=== PATIENT | male | born 1960 | race Caucasian/White ===

== ENCOUNTER 2023-12-18 09:07 | Outpatient (CLI) | payer OTHER, SELFPAY ==
--- NOTE | ~2023-12-18 | XR_ITS ---
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 TECHNIQUE: AP internally and externally rotated, AP oblique externally rotated and axillary views of the left shoulder were obtained. COMPARISON: None FINDINGS: Normal alignment. No fracture. Mild glenohumeral and acromioclavicular osteoarthritis. Visualized po rtion of the upper lungs are clear. Soft tissues are unremarkable. IMPRESSION: Mild left glenohumeral and acromioclavicular osteoarthritis. Reviewed, dictated and finalized at location B.
--- NOTE | ~2023-12-18 | XR_ITS ---
EXAMINATION: XR wrist LT min 3V DATE: 12/18/2023 09:27 INDICATION: Chronic multiple joint pain. Rheumatoid arthritis and ankylosing spondylitis. TECHNIQUE: Posteroanterior, ulnar deviation, oblique, and lateral views of the left wrist were obtain ed. COMPARISON: none FINDINGS: Bone alignment is normal. No fracture. Mild osteoarthritis at the distal radioulnar, radiocarpal, fir st carpometacarpal and first metacarpophalangeal joints. Small lucency potentially chronic erosion at the ulnar side of the ulnar styloid process. IMPRESSION: 1. 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 2. Possible small erosion along the ulnar styloid process which could be related to reported history of rheumatoid arthritis. Reviewed, dictated and finalized at location B. IMPRESSION: 1. 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 2. Possible small erosion along the ulnar styloid process which could be relate d to reported history of rheumatoid arthritis.
== END 2023-12-18 09:08 ==
LOC: MICIMG 09:10
PROVIDERS: PCP Internal Medicine; Visit Provider Internal Medicine
DX: M45.9 Ankylosing spondylitis of unspecified sites in spine (principal); M19.042 Primary osteoarthritis, left hand; M19.032 Primary osteoarthritis, left wrist; M19.012 Primary osteoarthritis, left shoulder
CPT/HCPCS: 73030; 73110

== ENCOUNTER 2024-06-14 07:23 | Outpatient (CLI) | payer MEDICARE, SELFPAY ==
--- NOTE | ~2024-06-14 | XR_ITS ---
EXAMINATION: XR lumbar spine min 4V DATE: 06/14/2024 08:04 INDICATION: Low back pain. TECHNIQUE: 5 views of lumbar spine were obtained. COMPARISON: None. FINDINGS: There is 3 degrees levocurvature of lumbar spine. There is mild chronic anterior wedging of T12 and L1 vertebral bodies. There is mildly decreased disc height at L4-L5 and L5-S1. There are end plate osteophytes at most levels. There is multilevel [id number] facet joint osteoarthritis. IMPRESSION: 1. Mild lumbar spondylosis. Reviewed, dictated and finalized at location A. AL SCIENCE PROFESSOR IMPRESSION: 1. Mild lumbar spondylosis.
--- NOTE | ~2024-06-14 | XR_ITS ---
Right ankle Technique: AP, oblique, and lateral views were obtained. Clinical History: Pain Findings: No acute fracture or dislocation is seen. Osseous alignment is anatomic. Ankle mortise and other visualized joint spaces are preserved. Soft tissues are otherwise unremarkable. Impression: Unremarkable right ankle. Reviewed, dictated and finalized at location . ITALITY MANAGER Impression: Unremarkable right ankle.
== END 2024-06-14 07:24 | disposition home or self-care (01) ==
DX: M47.896 Other spondylosis, lumbar region (principal)
CPT/HCPCS: 72110; 73610

== ENCOUNTER 2024-09-20 15:31 | Outpatient (CLI) | payer MEDICARE, SELFPAY ==
--- NOTE | ~2024-09-20 | CT_ITS ---
CLINICAL INDICATION: Abdominal pain COMPARISON: None. TECHNIQUE: Multiple contiguous axial images of the abdomen and pelvis were performed without the admi nistration of intravenous contrast The dose-length product (DLP) was 205.89 mGy-cm. Automated exposure control and iterative reconstruction technique were employed. FINDINGS/OBSERVATIONS: Visualized lower thorax: The bilateral lung bases are clear. The heart is of normal size, without pericardial effusion. Liver: The liver demonstrates homogeneous attenuation and is not enlarged measuring 13 cm in longitudinal di mension. Gallbladder and biliary system: The gallbladder is decompressed, and otherwise unremarkable. Pancreas: Limited evaluation of the pancreas secondary to the lack of intravenous contrast. Spleen: The spleen demonstrates homogeneous attenuation and is not enlarged measuring 9 cm in longitudinal di mension. Kidneys: The bilateral kidneys are unremarkable, without hydronephrosis or renal calculi. Adrenal glands: Unremarkable. Gastrointestinal tract: Colonic diverticulosis without surrounding inflammatory change. Fecal stasis within the colon. Appendix: The appendix is not definitively visualized. However, no pericecal inflammatory change is identified suggest the presence of acute appendicitis. Vasculature: Unremarkable. Lymph nodes: Limited evaluation without intravenous contrast. Pelvic structures: The bladder is minimally distended, and otherwise unremarkable. The prostate gland is enlarged, and contains bulky calcifications. Body wall and musculoskeletal: Bone island within the vertebral body of L2, unchanged from prior plain film evaluation dated 06/14/20 24 No significant degenerative disease within the lower thoracic or lumbosacral spine. IMPRESSION: Colonic diverticulosis without surrounding inflammatory change. Reviewed, dictated and finalized at location A. RMARY ATTENDANT
--- OUTSIDE RECORDS SUMMARY | 2024-09-20 15:37 | XMS_ITS | Patient Health Record ---
Author Organization [facility] Address [address] [place] [address] Care Team Providers Care Operations Expert Name Role Phone Elroy Conner Primary Care Provider Renee Cooper Unavailable [phone] Scar Ellis Unavailable [phone] Allergies Allergen (clinical drug ingredient) Drug/Non Drug Allergy documented on EMR Reaction Allergy Type Onset Date Status Penicillin Unknown Drug Allergy Active Results Component Value Reference Range Notes eGFR Reviewed date:08/13/2024 02:01:30 PM Interpretation: Performing Lab:[facility] , [address] [place] [address]. [facility] [address] Notes/Report: eGFR 88 >=60 mL/min/1.73 m2 Interpretive Data Reference Interval Normal >/= 90 mL/min/1.73m2 Mildly decreased* 60 - 89 mL/min/1.73m2 Mildly to moderately decreased 45 - 59 mL/min/1.73m2 Moderately to severely decreased 30 - 44 mL/min/1.73m2 Severely decreased 15 - 29 mL/min/1.73m2 Kidney Failure < 15 mL/min/1.73m2 *Relative to young adult level Estimated glomerular filtration rate is determined by the 2020 CKD-EPI equation recommended by the National Kidney Foundation (A Unifying Approach to GFR Estimation: Recommendations of the NKF-ASK Task Force on Reassessing the Inclusion of Race in Diagnosing Kidney Disease, JASN 2020). The CKD-EPI equation should not be used for patients with unstable renal function and has not been validated in children and those over 70. Current interpretive data was last reviewed 2021. Differential Automated Reviewed date:08/13/2024 02:01:29 PM Interpretation: Performing Lab:[facility] , [address] [place] [address] Notes/Report: Neut Abs 3.0 1.5-6.5 K/cumm ImmGran Abs 0.0 0.0-0.1 K/cumm Lymphocyte Abs 0.8 0.8-3.3 K/cumm Gasconade Abs 0.7 0.2-0.8 K/cumm Eos Abs 0.1 0.0-0.5 K/cumm Baso Abs 0.0 0.0-0.1 K/cumm Neut Pct 63.6 Interpretive Data Percent cell count reference ranges are not reported, since discordance with absolute values may lead to misinterpretation of CBC data. Current Interpretive Data was last revised on 2017. ImmGran Pct 0.2 Interpretive Data Percent cell count reference ranges are not reported, since discordance with absolute values may lead to misinterpretation of CBC data. Current Interpretive Data was last revised on 2017. Lymph Pct 17.5 Interpretive Data Percent cell count reference ranges are not reported, since discordance with absolute values may lead to misinterpretation of CBC data. Current Interpretive Data was last revised on 2017. Gas[place] Pct 15.6 Interpretive Data Percent cell count reference ranges are not reported, since discordance with absolute values may lead to misinterpretation of CBC data. Current Interpretive Data was last revised on 2017. Eos Pct 2.5 Interpretive Data Percent cell count reference ranges are not reported, since discordance with absolute values may lead to misinterpretation of CBC data. Current Interpretive Data was last revised on 2017. Baso Pct 0.6 Interpretive Data Percent cell count reference ranges are not reported, since discordance with absolute values may lead to misinterpretation of CBC data. Current Interpretive Data was last revised on 2017. QTB Gold Reviewed date:08/15/2024 09:05:59 PM Interpretation: Performing Lab:[facility] , [address] [place] [address] Notes/Report: QuantiFERON TB Gold Negative Negative No interferon-gamma response to M. tuberculosis antigens was detected. Latent infection with M. tuberculosis is unlikely. A single negative result does not exclude infection with M. tuberculosis. In patients at high risk for M.tuberculosis infection, a second test should be considered in accordance with the 2017 ATS/IDSA/CDC Clinical Practice Guidelines for Diagnosis of Tuberculosis in Adults and Children [Clem JOSEPH et. al. Clin. Infect. Dis. 2017;64(2):111-115]. The reference range for the 'TB1 Ag minus Nil Result' and 'TB2 Ag minus Nil Result' is an Interferon-gamma level <0.35 IU/mL. TB-Nil 0.00 TB2-Nil 0.00 Mitogen-Nil 2.27 NIL 0.03 Test Performed by: [facility] [address] [place] [address] [employer]: Kurtis Martínez Ph.D.; CLIA# [id number] Comprehensive metabolic pane l (CMP) Reviewed date:08/13/2024 02:01:19 PM Interpretation:Lab Result Generalized Performing Lab:[facility] , [address] [place] [address]. [facility] [address] Notes/Report: Sodium 142 135-145 mmol/L Plasma Potassium 4.4 3.3-4.9 mmol/L Chloride 105 97-110 mmol/L Total CO2 27 22-32 mmol/L Anion Gap 10 2-15 mmol/L BUN 18 6-25 mg/dL Creatinine 0.96 0.80-1.30 mg/dL Glucose 86 70-199 mg/dL Interpretive Data Fasting glucose >/= 126 mg/dl is diagnostic for diabetes. Fasting is defined as no caloric intake for at least 8 hours. Fasting glucose between 100 mg/dl to 125 mg/dl is diagnostic of prediabetes. In a patient with classic symptoms of hyperglycemia or hyperglycemic crisis, a random glucose >/= 200 mg/dl is diagnostic for diabetes. In the absence of unequivocal hyperglycemia, results should be confirmed by repeat testing. The classification and Diagnosis of Diabetes Diabetes Care 2021; 46: S19-S40. Current interpretive data was last revised 2022. Total Calcium 9.8 8.5-10.3 mg/dL Total Bilirubin 0.8 0.1-1.2 mg/dL Plasma Total Protein 7.2 6.5-8.5 g/dL Albumin 4.5 3.5-5.0 g/dL Alkaline Phosphatase 42 40-130 Units/L ALT 36 7-55 Units/L AST 41 10-50 Units/L CBC w auto diff Reviewed date:08/13/2024 02:01:19 PM Interpretation:Lab Result Generalized Performing Lab:[facility] , [address] [place] [address]. [facility] [address] Notes/Report: WBC 4.8 3.8-9.9 K/cumm Hgb 16.0 13.0-17.5 g/dL Hct 48.5 38.9-50.3 % Platelet Ct 227 150-400 K/cumm MPV 10.7 9.1-12.3 fL RBC 5.29 4.30-5.80 M/cumm MCV 91.7 81.3-96.4 fL MCH 30.2 27.1-33.3 pg MCHC 33.0 32.3-35.7 g/dL RDW CV 12.5 11.1-14.9 % RDW SD 42.2 35.7-48.1 fL NRBC Abs Auto 0.00 0.00-0.01 K/cumm eGFR Reviewed date:05/29/2024 01:41:12 PM Interpretation: Performing Lab:[facility] , [address] [place] [address]. [place] [address] Notes/Report: eGFR 83 >=60 mL/min/1.73 m2 Interpretive Data Reference Interval Normal >/= 90 mL/min/1.73m2 Mildly decreased* 60 - 89 mL/min/1.73m2 Mildly to moderately decreased 45 - 59 mL/min/1.73m2 Moderately to severely decreased 30 - 44 mL/min/1.73m2 Severely decreased 15 - 29 mL/min/1.73m2 Kidney Failure < 15 mL/min/1.73m2 *Relative to young adult level Estimated glomerular filtration rate is determined by the 2020 CKD-EPI equation recommended by the National Kidney Foundation (A Unifying Approach to GFR Estimation: Recommendations of the NKF-ASK Task Force on Reassessing the Inclusion of Race in Diagnosing Kidney Disease, JASN 202). The CKD-EPI equation should not be used for patients with unstable renal function and has not been validated in children and those over 70. Current interpretive data was last reviewed 2021. Differential Automated Reviewed date:05/29/2024 01:41:12 PM Interpretation: Performing Lab:[facility] , [address] [facility]. [place] [address] Notes/Report: Neut Abs 5.2 1.5-6.5 K/cumm ImmGran Abs 0.0 0.0-0.1 K/cumm Lymphocyte Abs 0.9 0.8-3.3 K/cumm Gasconade Abs 0.7 0.2-0.8 K/cumm Eos Abs 0.1 0.0-0.5 K/cumm Baso Abs 0.0 0.0-0.1 K/cumm Neut Pct 75.3 Interpretive Data Percent cell count reference ranges are not reported, since discordance with absolute values may lead to misinterpretation of CBC data. Current Interpretive Data was last revised on 2017. ImmGran Pct 0.4 Interpretive Data Percent cell count reference ranges are not reported, since discordance with absolute values may lead to misinterpretation of CBC data. Current Interpretive Data was last revised on 2017. Lymph Pct 13.3 Interpretive Data Percent cell count reference ranges are not reported, since discordance with absolute values may lead to misinterpretation of CBC data. Current Interpretive Data was last revised on 2017. Gas[place] Pct 9.8 Interpretive Data Percent cell count reference ranges are not reported, since discordance with absolute values may lead to misinterpretation of CBC data. Current Interpretive Data was last revised on 2017. Eos Pct 0.9 Interpretive Data Percent cell count reference ranges are not reported, since discordance with absolute values may lead to misinterpretation of CBC data. Current Interpretive Data was last revised on 2017. Baso Pct 0.3 Interpretive Data Percent cell count reference ranges are not reported, since discordance with absolute values may lead to misinterpretation of CBC data. Current Interpretive Data was last revised on 2017. SSB Ab Reviewed date:05/30/2024 10:49:43 AM Interpretation: Performing Lab:[facility] , [address] [facility] [place] [address] Notes/Report: SS B Antibody <0.2 <=0.9 Ab Index Interpretive Data Negative: < 1.0 Ab Index Positive: > or = 1.0 Ab Index Current interpretive data was last revised on 2016. SSA Ab Reviewed date:05/30/2024 10:49:43 AM Interpretation: Performing Lab:[facility] , [address] [place] [address]. [facility] [address] Notes/Report: SS A Antibody <0.2 <=0.9 Ab Index Interpretive Data Negative: < 1.0 Ab Index Positive: > or = 1.0 Ab Index Current interpretive data was last revised on 2016. Sed Rate Reviewed date:05/29/2024 01:41:12 PM Interpretation: Performing Lab:[facility] , [address] [place] [address]. [facility] [address] Notes/Report: ESR 3 1-20 mm/hr QTB Gold Reviewed date:05/31/2024 03:14:30 PM Interpretation: Performing Lab:[facility] , [address] [place] [address]. [facility] [address] Notes/Report: QuantiFERON TB Gold Negative Negative No interferon-gamma response to M. tuberculosis antigens was detected. Latent infection with M. tuberculosis is unlikely. A single negative result does not exclude infection with M. tuberculosis. In patients at high risk for M.tuberculosis infection, a second test should be considered in accordance with the 2017 ATS/IDSA/CDC Clinical Practice Guidelines for Diagnosis of Tuberculosis in Adults and Children [Lewinsohn DM et. al. Clin. Infect. Dis. 2017;64(2):111-115]. The reference range for the 'TB1 Ag minus Nil Result' and 'TB2 Ag minus Nil Result' is an Interferon-gamma level <0.35 IU/mL. TB-Nil 0.01 TB2-Nil 0.01 Mitogen-Nil 7.33 NIL 0.02 Test Performed by: [place] [id number] [place] [id number] [employer]: Kurtis Martínez Ph.D.; CLIA# [id number] Hep C AB Reviewed date:05/29/2024 01:41:12 PM Interpretation: Performing Lab:[facility] , [address] [place] [address]. [facility] [address] Notes/Report: Hepatitis C Antibody Nonreactive Nonreactive Interpretive Data Nonreactive: Antibodies to HCV not detected. Does NOT exclude the possibility of recent exposure to HCV. Equivocal: Equivocal for HCV antibodies. Supplemental molecular testing will be automatically performed to determine infection status in accordance with current CDC screening recommendations. Reactive: Positive for HCV antibodies. This may represent current or past HCV infection. Supplemental molecular testing will be automatically performed to determine current infection status in accordance with current CDC screening recommendations. Interpretive data was last revised on 2019. Hep B surf AG Reviewed date:05/29/2024 01:41:12 PM Interpretation: Performing Lab:[facility] , [address] [place] [address]. [place] [address] Notes/Report: Hepatitis B Surface Antigen Nonreactive Nonreactive G6PD Ql Reviewed date:05/29/2024 09:58:10 PM Interpretation: Performing Lab:[facility] , [address] [place] [address]. [facility] [address] Notes/Report: G6PD, Qual Normal Normal Interp data: G6PD activity should be interpreted in the context of a patient's hematocrit. Hematocrit < 20% may lead to a falsely deficient result, while hematocrit > 50% may lead to a falsely normal result. Current interpretive data was last revised on 2019. Testing performed by: [facility], [address] [place] [address] Creatine Kinase Reviewed date:05/29/2024 01:41:12 PM Interpretation: Performing Lab:[facility] , [facility] [address] [facility]. [place] [address] Notes/Report: Total CK 330 40-300 Units/L Comprehensive metabolic pane l (CMP) Reviewed date:05/29/2024 01:41:12 PM Interpretation: Performing Lab:[facility] , [address] [place] [address]. [place] [address] Notes/Report: Sodium 141 135-145 mmol/L Plasma Potassium 4.4 3.3-4.9 mmol/L Chloride 104 97-110 mmol/L Total CO2 26 22-32 mmol/L Anion Gap 11 2-15 mmol/L BUN 18 6-25 mg/dL Creatinine 1.01 0.80-1.30 mg/dL Glucose 103 70-199 mg/dL Interpretive Data Fasting glucose >/= 126 mg/dl is diagnostic for diabetes. Fasting is defined as no caloric intake for at least 8 hours. Fasting glucose between 100 mg/dl to 125 mg/dl is diagnostic of prediabetes. In a patient with classic symptoms of hyperglycemia or hyperglycemic crisis, a random glucose >/= 200 mg/dl is diagnostic for diabetes. In the absence of unequivocal hyperglycemia, results should be confirmed by repeat testing. The classification and Diagnosis of Diabetes Diabetes Care 2021; 46: S19-S40. Current interpretive data was last revised 2022. Total Calcium 9.9 8.5-10.3 mg/dL Total Bilirubin 0.9 0.1-1.2 mg/dL Plasma Total Protein 7.4 6.5-8.5 g/dL Albumin 4.9 3.5-5.0 g/dL Alkaline Phosphatase 36 40-130 Units/L ALT 56 7-55 Units/L AST 42 10-50 Units/L CBC w auto diff Reviewed date:05/29/2024 01:41:12 PM Interpretation: Performing Lab:[facility] , [facility] [place][note 2][address] [facility]. [facility] [address] Notes/Report: WBC 6.9 3.8-9.9 K/cumm Hgb 15.8 13.0-17.5 g/dL Hct 47.9 38.9-50.3 % Platelet Ct 257 150-400 K/cumm MPV 9.8 9.1-12.3 fL RBC 5.05 4.30-5.80 M/cumm MCV 94.9 81.3-96.4 fL MCH 31.3 27.1-33.3 pg MCHC 33.0 32.3-35.7 g/dL RDW CV 12.8 11.1-14.9 % RDW SD 45.1 35.7-48.1 fL NRBC Abs Auto 0.00 0.00-0.01 K/cumm Anti-CCP (Cyclic Citrullinat ed Peptide Ab) Reviewed date:05/30/2024 10:49:43 AM Interpretation: Performing Lab:[facility] , [facility] [place][note 2][address] [facility]. [facility] [address] Notes/Report: CCP Ab <0.5 <=2.9 units/mL Interpretive data Negative: <3 units/mL Positive: > or equal to 3 units/mL Current interpretive data was last revised on 2016. Rheumatoid Factor Reviewed date:05/29/2024 01:41:12 PM Interpretation: Performing Lab:[facility] , [address] [facility] [facility] [address] Notes/Report: RF, Lito 10 <=15 IUnits/mL C Reactive Protein Reviewed date:05/29/2024 01:41:12 PM Interpretation: Performing Lab:[facility] , [address] [facility] [facility] [address] Notes/Report: C-Reactive Protein <3.0 <=10.0 mg/L MERNA reflex titer pattern HEMAL + dsDNA Reviewed date:05/30/2024 05:54:31 PM Interpretation: Performing Lab:[facility] , [address] [facility] [facility] [address] Notes/Report: MERNA, Qual Negative Interpretive Data Normal range for MERNA Qualitative Antibody = Negative. 1. MERNA is performed using indirect immunofluorescence against HEp-2 cells 2. MERNA titers are performed on all positive qualitative results. 3. A significantly positive MERNA result is defined as a positive nuclear fluorescence at a titer of 1:80 or greater. 4. 15% of normal people above age 65 have significantly positive MERNA results. 5% or less of normal people age 65 or under have significantly positive MERNA results. Current interpretive data was last revised on 2020. Testing performed by: [facility], [address] [place]., [address] Reason For Referral Reason Simponi Aria [employer] Diagnosis 1 Rheumatoid arthritis without rheumatoid factor, multiple sites (M06.09) Referral Organization [facility] Referring Provider First Name Renee Referring Provider Last Name Brian Referring Provider Speciality Rheumatolo gy Referred Organization [facility] Referred Provider Renee Torres Referred Address [address] [address],[place], [place],[address],[place] Referred Provider Specialty Rheumatology Procedure 1 INJECTION GOLIMUMAB 1 MG FOR IV USE (J1602) Referral Priority Routine Medications Medication SIG (Take, Route, Frequency, Duration) Notes Start Date End Date Status Tamsulosin HCl 0.4 MG 1 capsule Orally O nce a day for 30 day(s) Active Rosuvastatin Calcium 10 MG 1 tablet Oral ly Once a day for 30 day(s) Active Leflunomide 20 MG TAKE 1 TABLET BY JASON TH EVERY DAY FOR 30 DAYS for 30 Active Social History Tobacco Use: Social History Observation Description Date Details (start date - stop date) Never Smoker NA - NA Household Question Answer Notes Marital status: Number of children in household: 0 Tobacco Control (Standard) Question Answer Notes Tobacco use: Nonsmoker Problems Problem Type SNOMED Code ICD Code Onset Dates Problem Status W/U Status Risk Notes Problem [id number] Rheumatoid arthritis without rheumatoid factor, multiple sites (M06.09) Active confirmed Problem 75991332 Neck pain (M54.2) Active confirmed Vital Signs Heart Rate 85 /min 09/02/2024 Temperature 98.2 degrees Fahrenheit 09/02/2024 Blood pressure diastolic 99 mm Hg 09/02/2024 Oximetry 96 % 08/13/2024 Height-cm 175.26 cm 09/02/2024 Weight-kg 80.29 kg 09/02/2024 Height 69 in 09/02/2024 Blood pressure systolic 150 mm Hg 09/02/2024 Weight 177 lbs 09/02/2024 BMI 26.14 kg/m2 09/02/2024 Encounters Encounter Location Date Provider Diagnosis [facility] [address] [address] 05/29/2024 Renee Du Pain in unspecified joint M25.50 and Myalgia M79.10 [facility] [address] [place] [address] 06/12/2024 Renee Du Rheumatoid arthritis without rheumatoid factor, multiple sites M06.09 ; Acute right ankle pain M25.571 ; Muscle spasm M62.838 and Elevated CK R74.8 [facility] [address] [place] [address] 08/13/2024 Renee Du Rheumatoid arthritis without rheumatoid factor, multiple sites M06.09 ; Acute right ankle pain M25.571 ; Muscle spasm M62.838 ; Elevated CK R74.8 and Neck pain M54.2 [facility] [address] [place] [address] 09/02/2024 Renee Du Rheumatoid arthritis without rheumatoid factor, multiple sites M06.09 [facility] [address] [place] [id number] 06/12/2024 Renee Torres [facility] [address] [place] [address] 06/13/2024 Renee Torres Lumbar back pain M54 .50 [facility] [address] [place] [address] 08/20/2024 Renee Torres [facility] [address] [place] [address] 08/23/2024 Renee Torres Assessments Encounter Date Diagnosis (ICD Code) Assessment Notes Treatment Notes Treatment Clinical Notes Section Notes 05/29/2024 Pain in unspecified joint (ICD-10 - M25.50) 64 year old female with arthralgia and myalgia. The pain is steroid responsive. He was diagnosed with rheumatoid arthritis by Dr. Villa. He did not tolerate methotrexate. He failed sulfasalazine, imuran and enbrel. He is here for second opinion. Serologies will be ordered. Follow up vitisit will be scheduled. 05/29/2024 Myalgia (ICD-10 - M79.10) 64 year old female with arthralgia and myalgia. The pain is steroid responsive. He was diagnosed with rheumatoid arthritis by Dr. Villa. He did not tolerate methotrexate. He failed sulfasalazine, imuran and enbrel. He is here for second opinion. Serologies will be ordered. Follow up vitisit will be scheduled. 06/12/2024 Rheumatoid arthritis without rheumatoid factor, multiple sites (ICD-10 - M06.09) labs discussed with patient, CK mildly elevated, has had muscle spasms, severe at times, advised to hold rosuvastatin for a few weeks and see if spasms get better, order Xray of the right ankle, order mailed to him, start arava 20mg/day for seronegative RA, return in 6 weeks 06/12/2024 Acute right ankle pain (ICD-10 - M25.571) labs discussed with patient, CK mildly elevated, has had muscle spasms, severe at times, advised to hold rosuvastatin for a few weeks and see if spasms get better, order Xray of the right ankle, order mailed to him, start arava 20mg/day for seronegative RA, return in 6 weeks 06/13/2024 Lumbar back pain (ICD-10 - M54.50) 08/13/2024 Rheumatoid arthritis without rheumatoid factor, multiple sites (ICD-10 - M06.09) uncontrolled, did not tolerate methotrexate, failed sulfasalazine, imuran, enbrel and now leflunomide, advised to stop leflunomide, will order TB test and arrange orencia infusion, order cervical spine Xray, consider PT 08/13/2024 Acute right ankle pain (ICD-10 - M25.571) uncontrolled, did not tolerate methotrexate, failed sulfasalazine, imuran, enbrel and now leflunomide, advised to stop leflunomide, will order TB test and arrange orencia infusion, order cervical spine Xray, consider PT 09/02/2024 Rheumatoid arthritis without rheumatoid factor, multiple sites (ICD-10 - M06.09) 06/12/2024 Muscle spasm (ICD-10 - M62.838) labs discussed with patient, CK mildly elevated, has had muscle spasms, severe at times, advised to hold rosuvastatin for a few weeks and see if spasms get better, order Xray of the right ankle, order mailed to him, start arava 20mg/day for seronegative RA, return in 6 weeks 08/13/2024 Muscle spasm (ICD-10 - M62.838) uncontrolled, did not tolerate methotrexate, failed sulfasalazine, imuran, enbrel and now leflunomide, advised to stop leflunomide, will order TB test and arrange orencia infusion, order cervical spine Xray, consider PT 08/13/2024 Elevated CK (ICD-10 - R74.8) uncontrolled, did not tolerate methotrexate, failed sulfasalazine, imuran, enbrel and now leflunomide, advised to stop leflunomide, will order TB test and arrange orencia infusion, order cervical spine Xray, consider PT 06/12/2024 Elevated CK (ICD-10 - R74.8) labs discussed with patient, CK mildly elevated, has had muscle spasms, severe at times, advised to hold rosuvastatin for a few weeks and see if spasms get better, order Xray of the right ankle, order mailed to him, start arava 20mg/day for seronegative RA, return in 6 weeks 08/13/2024 Neck pain (ICD-10 - M54.2) uncontrolled, did not tolerate methotrexate, failed sulfasalazine, imuran, enbrel and now leflunomide, advised to stop leflunomide, will order TB test and arrange orencia infusion, order cervical spine Xray, consider PT Plan Of Treatment Pending Test Test Name Order Date X ray : Ankle, right 06/12/2024 X ray : Spines, cervical 2 views 025 X ray : Spines, lumbar complete 06/13/20 Next Appt Details Provider Name:Renee Brian, 09/30 08:30:00 AM, [address], [place], [address], Provider Name:Renee Torres, 11/25 08:30:00 AM, [address], [place], [address], Insurance Providers Payer Name Payer Address Payer Phone Subscriber Number Group Number Insured Name Patient Relationship to Insured Coverage Start Date Coverage End Date [employer] Medicare Ppo [address] [place] [address] [id number] Jose Elias Pinon Self - patient is the insured Medical (General) History Medical History History ICD Code myalgia, hyperlipidemia, GERD, vitamin D deficiency, BPH Surgical History Surgery Date(Month/Year) hernia repair, right forearm fracture
--- OUTSIDE RECORDS SUMMARY | 2024-09-20 15:37 | XMS_ITS ---
Author Organization [facility] avery Address [address] [facility] [address], [place] [address] Care Team Providers Care Barge Hand Name Role Phone Elroy Conner Primary Care Provider Renee Cooper [phone] REASON FOR VISIT flare Medications Medication SIG (Take, Route, Frequency, Duration) Notes Start Date End Date Status methylPREDNISolone 4 MG taper Orally for 6 days 08/29/2024 Active Encounters Encounter Location Date Provider Diagnosis [facility] [address] [facility] [address] [place] [address] 08/23/2024 Renee Torres Plan Of Treatment Medication Medication Name Sig Start Date Stop Date Notes methylPREDNISolone 4 MG taper Orally for 6 days 08/23/2024 08/29/2024 Next Appt Details Provider Name:Renee Torres, 09/30 08:30:00 AM, [address], [facility] [address], [place], [address], Provider Name:Renee Torres, 11/25 08:30:00 AM, [address], [facility] [address], [place], [address], Progress Notes * Jose Elias PINONDOB:1960 ( 64 yo M)Acc No.[id number]:08/23/2024 Patient: Jose Elias DUONG :1960 A ge:64 Y S ex:Male Address:[place], [address] * Refills Start methylPREDNISolone Tablet Therapy Pack, 4 MG, Orally, 21, taper, 6 days, Refills=0 * true * Date: Generated for Arnoldo rodríguez/Ronna/Ashleyitting on: 0 09/20/2024 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
--- OUTSIDE RECORDS SUMMARY | 2024-09-20 15:37 | XMS_ITS ---
Author Organization [facility] Address [address] [place] [address] Care Team Providers Care Reprint Sorter Name Role Phone Elroy Conner Primary Care Provider Renee Cooper [phone] REASON FOR VISIT copay assist Encounters Encounter Location Date Provider Diagnosis [facility] [address] [place] [address] 08/20/2024 Renee Torres Plan Of Treatment Next Appt Details Provider Name:Renee Torres, 09/30 08:30:00 AM, [address], [address], [place], [address], Provider Name:Renee Torres, 11/25 08:30:00 AM, [address], [address], [place], [address], Progress Notes * Jose Elias PINONDOB:1960 ( 64 yo M)Acc No.[id number]:08/20/2024 Patient: Jose Elias DUONG :1960 A ge:64 Y S ex:Male [place], [address] * true * Date: Generated for Printi ng/Faxing/eTransmitting on: 0 09/20/2024 03:36 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
--- OUTSIDE RECORDS SUMMARY | 2024-09-20 15:37 | XMS_ITS | Patient Health Summary ---
Author Organization [facility] Address [address] [facility] [place] [address] Care Team Providers Care Beauty Shop Manager Name Role Phone Unavailable Primary Care Provider Unavailabl e Note from [facility] [place],non-owned Affiliates and Associated Physician Practices is amultiple site organization consisting of ambulatory clinics and hospital sitesin [place], [place], [place] and [place]. This disclosure is being madepursuant to the Care Everywhere program and may not contain all information available regarding this patient. Last updated 18.[facility] [employer] Social History Tobacco Use Types Packs/Day Years Used Date Smoking Tobacco: Never Assessed Sex and Gender Information Value Date Recorded Sex Assigned at Not on file Gender Identity Not on file Sexual Orientation Not on file Procedures * XR LUMBAR SPINE 2 OR 3VW(Performed 02/15/2024) Performed for Seronegative rheumatoid arthritis of multiple sites (HCC), Ankylosing spondylitis, unspecified site of spine (HCC), High risk medication use, SOBOE (shortness of breath on exertion) * XR CHEST 2VW(Performed 03/21/2023) Performed for Seronegative rheumatoid arthritis of multiple sites (HCC), Ankylosing spondylitis, unspecified site of spine (HCC), High risk medications (not anticoagulants) long-term use, Short of breath on exertion * XR CHEST 2VW(Performed 08/03/2022) Performed for Seronegative rheumatoid arthritis of multiple sites ([facility]) Results * XR LUMBAR SPINE 2 OR 3 VW (02/15/2024 9:20 AM CDT) Anatomical Region Laterality Modality Spine Radiographic Fanta ging 02/15/2024 9:31 AM CDT Impressions 02/15/2024 9:32 AM CDT IMPRESSION: 1. No radiographic evidence of acute osseous abnormality of the lumbar spine. 2. Multilevel lumbar spondylosis. > Interpreting Provider: Tisha Torres MD on 02/15/2024 9:32 AM Narrative 02/15/2024 9:32 AM CDT PROCEDURE: XR LUMBAR SPINE 2 OR 3VW DATE/TIME OF EXAM: 02/15/2024 9:20 AM CLINICAL INFORMATION: None relevant/not provided if blank. Indication: M06.09: Rheumatoid arthritis without rheumatoid factor, multiple sites ([facility]) M45.9: Ankylosing spondylitis of unspecified sites in spine ([facility]) Z79.899: Other halfway (current) drug therapy R06.02: Shortness of breath Additional History: COMPARISON: None. FINDINGS: The pedicles are intact. Disc space degenerative changes are noted at T12-L1, L1-2, L4-5, and L5-S1. Vertebral body heights are maintained. No spondylolysis or spondylolisthesis is evident. Procedure Note Tisha Torres MD - 02/15/2024 PROCEDURE: XR LUMBAR SPINE 2 OR 3VW DATE/TIME OF EXAM: 02/15/2024 9:20 AM CLINICAL INFORMATION: None relevant/not provided if blank. 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 FINDINGS: The pedicles are intact. Disc space degenerative changes are noted at T12-L1, L1-2, L4-5, and L5-S1. Vertebral body heights are maintained. No spondylolysis or spondylolisthesis is evident. IMPRESSION: 1. No radiographic evidence of acute osseous abnormality of the lumbar spine. 2. Multilevel lumbar spondylosis. > Interpreting Provider: Tisha Torres MD on 02/15/2024 9:32 AM Josiah Villa MD DIAGNOSTIC IMAGING O RDERABLES * XR CHEST 2VW (03/21/2023 10:04 AM CDT) Only the most recent of2 resultswithin the time period is included. Anatomical Region Laterality Modality Chest Radiographic Fanta ging 03/21/2023 10:0 9 AM CDT Impressions 03/21/2023 10:10 AM CDT IMPRESSION: No acute cardiopulmonary abnormalities. > Interpreting Provider: Tisha Torres MD on 03/21/2023 10:10 AM Narrative 03/21/2023 10:10 AM CDT PROCEDURE: XR CHEST 2VW DATE/TIME OF EXAM: 03/21/2023 10:04 AM CLINICAL INFORMATION: None relevant/not provided if blank. Indication: M06.09: Rheumatoid arthritis without rheumatoid factor, multiple sites ([facility]) M45.9: Ankylosing spondylitis of unspecified sites in spine ([facility]) Z79.899: Other halfway (current) drug therapy R06.02: Shortness of breath Additional History: COMPARISON: August 03, 2022 FINDINGS: The heart size is normal. The pulmonary vascularity is within normal limits. Mild diffuse interstitial prominence is noted and unchanged. No pleural effusion is seen. Biapical scarring is unchanged. Procedure Note Tisha Torres MD - 03/21/2023 PROCEDURE: XR CHEST 2VW DATE/TIME OF EXAM: 03/21/2023 10:04 AM CLINICAL INFORMATION: None relevant/not provided if blank. 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 The pulmonary vascularity is within normal limits. Mild diffuse interstitial prominence is noted and unchanged. No pleural effusion is seen. Biapical scarring is unchanged. IMPRESSION: No acute cardiopulmonary abnormalities. > Interpreting Provider: Tisha Torres MD on 03/21/2023 10:10 AM Josiah Villa MD DIAGNOSTIC IMAGING O ERABLES
--- OUTSIDE RECORDS SUMMARY | 2024-09-20 15:37 | XMS_ITS | Data Portability ---
Author Organization [place] - [facility] [email or web address], Main Office Address [address] [place] [address] Assessment Encounter Date Assessment Date Assessment LastModified by Organization Details LastModified Time 01/18/2023 01/18/2023 07/08/2022: PSA 0.75 Not available 01/17/2023 18:17:08 01/30/2024 01/30/2024 07/08/2022: PSA 0.75 02/06/2023: LDL 132 BUN 27 Not available 01/29/2024 17:53:12 04/03/2024 04/03/2024 07/08/2022: PSA 0.75 02/06/2023: LDL 132 BUN 27 PSA 1.0 Not available 04/03/2024 14:55:29 09/16/2024 09/16/2024 07/08/2022: PSA 0.75 02/06/2023: LDL 132 BUN 27 PSA 1.0 02/07/2024: ALT/AST 39/58 Not available 09/16/2024 15:08:26 Plan of Treatment Reminders Order Date Submit Date Provider Last Modified By Organization Details Last Modified Time Details Appointments Follow Up 15 2024 08:45A Larissa carrizales MD Not available Not available Not available Lab CMP, serum or plasma 2024 025 [facility], [address] [facility], [place], [address], 09/16/2024 15:08:56 CBC w/ auto diff 2024 025 [facility], [address] [facility], [place], [address], 09/16/2024 15:08:53 T4, free, serum 2024 025 [facility], [address] [facility] [address], [place], [address], 09/16/2024 15:08:54 TSH, serum or plasma 2024 025 [facility], [address] [facility] [address], [place], [address], 09/16/2024 15:08:58 lipid panel, serum 2024 025 CHAVEZ [facility], [address] [facility] [address], [place], [address], 09/16/2024 15:08:59 vitamin D, 25-hydrox y, total, serum 2024 025 [facility], [address] [facility] [address], [place], [address], 09/16/2024 15:08:55 gamma-glu tamyl transfera se (ggt), serum 2024 025 CHAVEZ [facility], [address] [facility] [address], [place], [address], 09/16/2024 15:08:57 hepatitis panel (A+B+C), acute, serum 2024 025 [facility], [address] [facility] [address], [place], [address], 09/16/2024 15:08:55 vitamin B12 + folate, serum or blood 2024 025 [facility], [address] [facility] [address], [place], [address], 09/16/2024 15:08:58 vitamin D, 25-hydrox y, total, serum 2023 024 [email or web address] [facility], [address] [facility] [address], [place], [address], 07/08/2024 15:31:31 CMP, serum or plasma 2023 024 [email or web address], [address], [place], [address], 07/08/2024 15:31:30 CBC w/ auto diff 2023 024 [email or web address], [address], [place], [address], 07/08/2024 15:31:30 T4, free, serum 2023 024 [employer] [facility], [address], [place], [address], 04/03/2024 11:20:52 TSH, serum or plasma 2023 024 [employer] [facility], [address], [place], [address], 04/03/2024 11:20:54 lipid panel, serum 2023 024 [email or web address] [employer], [address], [place], [address], 07/08/2024 15:31:30 vitamin B12 + folate, serum or blood 2023 024 [email or web address], [address], [place], [address], 04/22/2024 14:08:28 PSA, serum or plasma 2023 024 [email or web address], [address], [place], [address], 02/14/2024 14:08:33 vitamin D, 25-hydrox y, total, serum 2023 024 [facility], [address], [place], [address], 02/12/2024 16:22:02 CMP, serum or plasma 2023 024 [email or web address], [address], [place], [address], 04/29/2024 10:47:43 CBC w/ auto diff 2023 024 [email or web address], [address], [place], [address], 04/29/2024 10:47:43 T4, free, serum 2023 024 [email or web address], [address], [place], [address], 08/01/2024 10:08:08 TSH, serum or plasma 2023 024 [email or web address], [address], [place], [address], 08/01/2024 10:08:09 lipid panel, serum 2023 024 [email or web address], [address], [place], [address], 04/29/2024 10:47:43 vitamin B12 + folate, serum or blood 2023 024 [email or web address], [address], [place], [address], 02/14/2024 14:08:33 CMP, serum or plasma 2022 023 [employer] [facility], [address], [place], [address], 04/05/2023 09:17:29 CBC w/ auto diff 2022 023 [facility], [address], [place], [address], 04/05/2023 09:17:29 T4, free, serum 2022 023 [email or web address], [address], [place], [address], 08/16/2023 12:08:16 TSH, serum or plasma 2022 023 [facility], [address], [place], [address], 08/16/2023 12:08:24 lipid panel, serum 2022 023 [facility], [address], [place], [address], 04/05/2023 09:17:[address] referral - Please call patient to schedule an appointme nt. Thank you. 2024 025 FRANKLIN Barron MD, [address] [facility], [address], [place], [address], 09/17/2024 15:40:34 cardiolog ist referral 2024 025 [email or web address] [place], [address] [address], [facility] [address], [place], [address], 09/17/2024 14:53:04 urologist referral 2024 025 FRANKLIN Kulkarni MD, [address] [address], [place], [address], 09/17/2024 15:45:29 cardiolog ist referral 2023 024 [email or web address], [address] [address], [address], [place], [address], 05/01/2024 08:57:46 urologist referral 2023 024 krystin Kulkarni MD, [address] [facility], [facility] [address], [place], [address], 05/01/2024 08:57:57 cardiolog ist referral 2023 024 [place], [address] [address], [address], [place], [address], 02/12/2024 17:01:08 Procedures colonosco py screening (PROC) 2022 023 [email or web address] Pura Caballero MD, [address] [facility], [address], [place], [address], 08/15/2023 17:40:32 Surgeries None recorded. Imaging CT, abdomen + pelvis, w/o contrast - Order for 5, per Ori w/ pre-arriv al 2024 025 [facility], [facility] [facility] [address], [place], [address], 09/18/2024 12:05:25 MRI, cervical spine, w/o contrast - Please call patient to schedule. 2024 025 [facility], [facility], [place], [address], 09/18/2024 15:20:46 US, liver - Please call patient to schedule. 2024 025 [facility], [address], [place], [address], 09/18/2024 12:05:25 Medication Orders finasteri de 5 mg tablet 2023 024 [email or web address] [facility][id number], [address] [place], [address], 09/16/2024 14:35:38 rosuvasta tin 10 mg tablet 2023 024 [email or web address] [facility][id number], [address] [place], [address], 09/16/2024 14:36:46 Patient TargetsNo targets recorded. Patient Instructions Encounter Date Encounter Id Patient Instructions Last Modified By Organization Details Last Modified Time 04/05/2024 [id number] impression 1. BPH with obstruction 2. Slow urinary stream Plan 1. I will send a prescription for finasteride and after 1 month he can stop the tamsulosin 2. 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 Referring Physician: Elroy [facility], Encounter Date: 01/30/2024 Divider Operator Referral for Ch est pain Referring Physician: Elroy Conner [facility], Encounter Date: 04/03/2024 Urologist Referral for Urina ry incontinence Referring Physician: Elroy Conner [facility], Encounter Date: 04/03/2024 Divider Operator Referral for Ch est pain Referring Physician: Elroy Conner [facility], Encounter Date: 09/16/2024 Urologist Referral for Urina ry incontinence Referring Physician: Elroy [facility]ner [facility], Encounter Date: 09/16/2024 Neurologist Referral for Diryann [email or web address] Please call patient to schedule an appointment. Thank you. Referring Physician: Elroy [facility], Encounter Date: 09/16/2024 Results Created Date Observation Date Name Description Value Unit Range Abnormal Flag Note LastModifiedBy Organization Detail LastModifiedTime 04/05/2004/05/2024 urina lysis , dipst ick Color Dark Yellow Not Available [facility] [address], [address], [address], 04/05/2024 10:09:43 04/05/20 24 04/05/2024 urina lysis , dipst ick Appearance Slight ly Cloudy Not Available [facility] [address], [address], [address], 04/05/2024 10:09:43 04/05/20 24 04/05/2024 urina lysis , dipst ick Glucose (reference range: negative mg/dl) Negati ve Not Available [address], [address], 04/05/2024 10:09:43 04/05/20 24 04/05/2024 urina lysis , dipst ick Bilirubin (reference range: negative mg/dl) Negati ve Not Available [address], [address], 04/05/2024 10:09:43 04/05/20 24 04/05/2024 urina lysis , dipst ick Ketone (reference range: negative mg/dl) Negati ve Not Available [address], [address], 04/05/2024 10:09:43 04/05/20 24 04/05/2024 urina lysis , dipst ick Specific [place] (reference range: 1.005-1.030) 1.025 Not Available [address], [address], 04/05/2024 10:09:43 04/05/20 24 04/05/2024 urina lysis , dipst ick Blood (reference range: negative Matt/ l) Negati ve Not Available [address], [address], 04/05/2024 10:09:43 04/05/20 24 04/05/2024 urina lysis , dipst ick pH (reference range: 5-7) 6.5 Not Available [address], [address], 04/05/2024 10:09:43 04/05/20 24 04/05/2024 urina lysis , dipst ick Protein (reference range: negative mg/dl) Negati ve Not Available [address], [address], 04/05/2024 10:09:43 04/05/20 24 04/05/2024 urina lysis , dipst ick Urobilinogen (reference range: 0.2-1 mg/dl) 0.2 Not Available [address], [address], 04/05/2024 10:09:43 04/05/20 24 04/05/2024 urina lysis , dipst ick Nitrite (reference rage: negative mg/dl) negati ve Not Available [address], [address], 04/05/2024 10:09:43 04/05/20 24 04/05/2024 urina lysis , dipst ick Leukocytes (reference range: negative brie/ l) Negati ve Not Available [address], [address], 04/05/2024 10:09:43 04/12/20 23 04/07/2023 cardi ac monit or No observ ation record ed. [email or web address] [facility] [address], [place], [address], 06/21/2023 11:20:18 04/20/20 23 04/19/2023 , echo ardio gram No observ ation record ed. [email or web address] [facility] [address], [place], [address], 06/21/2023 11:20:19 05/03/20 23 05/02/2023 cardi ac stres s test No observ ation record ed. [email or web address] [facility] [address], [place], [address], 06/21/2023 11:20:19 05/25/20 23 05/25/2023 pulmo nary funct ion test proce dure (PROC ) No observ ation record ed. [email or web address] [facility] [address], [place], [address], 07/26/2023 11:51:50 05/30/2005/29/2023 CT, coron dion calci um score No observ ation record ed. [email or web address] [address], [place], [address], 06/21/2023 11:20:20 04/26/20 24 04/24/2024 imagi ng/di agnos tic resul t No observ ation record ed. [facility] [address], [place], [address], 04/26/2024 11:54:38 09/18/19 25 09/18/2024 MRI, cervi shavon spine , w/o contr ast No observ ation record ed. [facility] [address] [place], [address], 09/18/2024 15:20:46 Result Notes None recorded. Problems Name Problem SNOMED Code Status Onset Date Resolution Date Notes Provider Name and Address Organization Details Recorded Time Pain of left shoulder joint 3327382493448 9109 Active 2021 Not Available [facility] 3 01:46:59 Pain of right shoulder joint 1269648485861 9100 Active 2021 Not Available [facility] 3 01:46:59 Vitamin D deficiency 32204469 Active 2021 Not Available [facility] 3 01:47:00 Hyperlipid emia 42147654 Active 2021 Not Available [facility] 3 01:47:00 Polymyalgi a 39843601 Active 2022 Elroy dao MD [address], [address], [place], [address] , [facility] [employer] [facility] 3 18:13:27 Gastroesop hageal reflux disease without esophagiti s 306585520 Active 2022 Elroy dao MD [address], [address], [place], [address] , [facility] [employer] [facility] 3 18:13:30 Insomnia 669772760 Active 2022 Elroy dao MD [address], [address], [place], [address] , [facility] [employer] [facility] 3 18:13:47 Nocturia 309140179 Active 2022 Alyssa Mccloud, [facility] null, [facility] [employer] [facility] 3 13:58:23 Chest pain 31965738 Active 2023 Elroy dao MD [address], [address], [place], [address] , [facility] [employer] [facility] 4 16:59:43 Serum vitamin B12 below reference range 109161797 Active 2023 Elroy dao MD [address], [address], [place], [address] , [facility] [employer] [facility] 4 17:17:38 Urinary incontinen ce 249745381 Active 2023 Elroy dao MD [address], [address], [place], [address] , [facility] [employer] [facility] 4 11:16:21 Benign prostatic hyperplasi a with outflow obstructio n 719490032 Active 2023 Dl Wren MD [address], [address], [place], [address] , [employer] [facility] 4 10:32:40 Liver enzymes level above reference range 467997044 Active 2024 Elroy dao MD [address], [address], [place], [address] , [employer] [facility] 5 14:27:17 Abdominal pain 77336338 Active 2024 Elroy dao MD [address], [address], [place], [address] , [employer] [facility] 5 14:45:44 Dizziness 690503372 Active 2024 Elroy dao MD [address], [facility] [address], [place], [address] , [facility] 5 15:05:43 Problem Notes None recorded. Procedures Surgical History Date Name Laterality Status Provider Name and Address Organization Details Recorded Time 05/24/20 Colonoscopy completed CRISTIANO Meneses [facility] 01/30/2024 16:40:29 Hernia Repair completed Not Available [facility] 10/06/2022 01:46:47 Tonsillectomy completed Not Available [facility] 10/06/2022 01:46:47 procedure on forearm completed Not Available [facility] 10/06/2022 01:46:47 Imaging Results Imaging Date Name Status LastModified by Organization Details LastModified Time 04/07/2023 school lunch monitor completed [facility] [facility] [address], [place], [address], 06/21/2023 11:20:18 04/19/2023 US, echocardiogram [facility] [address], [place], [address], 06/21/2023 11:20:19 05/02/2023 cardiac stress test completed [address] [facility] [address], [place], [address], 06/21/2023 11:20:19 05/25/2023 pulmonary function test procedure (PROC) active [email or web address] [facility] [address], [place], [address], 07/26/2023 11:51:50 05/29/2023 CT, coronary calcium score completed [address] [facility] [address], [place], [address], 06/21/2023 11:20:20 04/24/2024 imaging/diagnostic result active [facility] [address], [place], [address], 04/26/2024 11:54:38 09/18/2024 MRI, cervical spine, w/o contrast active [facility] [address], [place], [address], 09/18/2024 15:20:46 Procedure Notes None recorded. Medical Equipment None Reported. Allergies Allergen ID Allergen Name Allergen Category Reaction Reaction Severity Criticality Documentation Date Start Date Code Code System Note Provider Name and Address Organization Details Recorded Time 90191 Product containin g penicilli n and antibioti c (product) medicatio n rash Not available Not available 10/06/2022 27982 05 SNOMED Not Available [facility] 01:47:37 Medications Name Sig Start Date Stop Date Status Note LastModified by Organization Details LastModified Time celecoxib 200 mg capsule TAKE 1 CAPSULE BY MOUTH TWICE A DAY NEEDED active Not Available Not Available No t Available meloxicam 15 mg tablet TAKE 1 TABLET BY MOUTH EVERY DAY 07/06 completed Not Available Not Available Not Available prednison e 5 mg tablet TAKE 1 TO 3 TABLETS BY MOUTH DAILY NEEDED FOR ARTHRITI S FLARES active Not Available Not Available No t Available sulfasala zine 500 mg tablet,de layed release TAKE 3 TABLETS BY MOUTH TWICE A DAY 01/29 completed Not Available Not Available Not Available clindamyc in HCl 150 mg capsule TAKE 1 CAPSULE BY MOUTH EVERY 6 HOURS UNTIL FINISHED 04/03 completed Not Available Not Available Not Available azathiopr ine 50 mg tablet TAKE 3 TABLETS BY MOUTH EVERY DAY 09/16 completed Not Available Not Available Not Available leflunomi de 20 mg tablet TAKE 1 TABLET BY MOUTH EVERY DAY FOR 30 DAYS 09/16 completed Stopped by rheumato logy Not Available Not Available Not Available tramadol 50 mg tablet TAKE 1-2 TABLETS BY MOUTH 3 TIMES DAILY WITH OTC TYLENOL FOR PAIN CONTROL active Not Available Not Available No t Available triamcino lone acetonide 0.1 % topical cream APPLY THIN COAT TO AFFECTED AREA TWICE A DAY active Not Available Not Available No t Available temazepam 7.5 mg capsule take 1 capsule by mouth at bedtime as needed 01/18 completed Not Available Not Available Not Available methotrex ate sodium 2.5 mg tablet TAKE 5PILLS BY ORAL ROUTE ONCE WEEKLY 01/29 completed Not Available Not Available Not Available tamsulosi n 0.4 mg capsule TAKE 1 CAPSULE BY MOUTH EVERY DAY 09/16 completed Not Available Not Available Not Available pantopraz ole 40 mg tablet,de layed release TAKE 1 TABLET BY MOUTH EVERY DAY NEEDED FOR 90 DAYS active Not Available Not Available No t Available metoprolo l tartrate 50 mg tablet TAKE ONE TABLET BY MOUTH THE EVENING BEFORE CT, AND ONE TABLET TWO HOURS BEFORE CT. 09/16 completed Not Available Not Available Not Available diclofena c sodium 75 mg tablet,de layed release TAKE 1 TABLET BY MOUTH TWICE A DAY 01/29 completed Not Available Not Available Not Available folic acid 1 mg tablet TAKE 1 TABLET BY MOUTH EVERY DAY 01/29 completed Not Available Not Available Not Available bisacodyl 5 mg tablet,de layed release TAKE 6 TABLETS AT 8 AM ON 05/23 completed Not Available Not Available Not Available ergocalci ferol (vitamin D2) 1,250 mcg (50,000 unit) capsule TAKE 1 CAPSULE EVERY WEEK BY ORAL ROUTE. 01/18 completed Not Available Not Available Not Available methylpre dnisolone 4 mg tablets in a dose pack TAKE 6 TABLETS ON DAY 1 DIRECTED ON PACKAGE AND DECREASE BY 1 TAB EACH DAY FOR A TOTAL OF 6 DAYS 09/16 completed Not Available Not Available Not Available finasteri de 5 mg tablet TAKE 1 TABLET BY MOUTH EVERY DAY 09/16 completed Not Available Not Available Not Available magnesium 250 mg (as magnesium oxide) tablet TAKE 1 TABLET BY MOUTH TWICE A DAY 01/29 completed Not Available Not Available Not Available cyclobenz aprine 5 mg tablet TAKE 1 TO 2 TABLETS BY MOUTH NIGHTLY active Not Available Not Available No t Available rosuvasta tin 5 mg tablet TAKE 1 TABLET BY MOUTH EVERY DAY 04/03 completed Not Available Not Available Not Available rosuvasta tin 10 mg tablet TAKE 1 TABLET BY MOUTH EVERY DAY active CURRENTL Y TAKING 5MG DAILY Not Available Not Available Not Available rosuvasta tin 40 mg tablet Take 1 tablet every day by oral route. 01/29 completed Not Available Not Available Not Available Enbrel 04/03 completed Not Available Not Available Not Available Enbrel [employer] 50 mg/mL (1 mL) subcutane ous pen injector 09/16 completed Not Available Not Available Not Available Gavilyte- C 240 gram-22.7 2 gram-6.72 gram-5.84 gram oral solution DRINK 1/2 OF BOTTLE AT 5 PM ON 05/23 DIRECTED AND DRINK SECOND 1/2 AT 5 AM ON 05/24 completed Not Available Not Available Not Available Simponi ARIA active Not Available Not Available Not Available Vitals Date Recorded Body height Body mass index (BMI) Body weight Body temperature Heart rate Systolic blood pressure Diastolic blood pressure Provider Name and Address Organization Details Last Updated DateTime 3 175.26 cm 27 kg/m2 70642.4 g 97.5 [degF] 96 /min 122 mm[Hg] 78 mm[Hg] CRISTIANO Meneses [email or web address] 3 10:22:14 Date Recorded Body height Body mass index (BMI) Body weight Body temperature Heart rate Systolic blood pressure Diastolic blood pressure Provider Name and Address Organization Details Last Updated DateTime 4 175.26 cm 26.6 kg/m2 35743.6 3 g 97.7 [degF] 84 /min 128 mm[Hg] 68 mm[Hg] Alyssa Mccloud [place] [facility] [email or web address] 4 16:43:39 Date Recorded Body height Body mass index (BMI) Body weight Body temperature Heart rate Systolic blood pressure Diastolic blood pressure Provider Name and Address Organization Details Last Updated DateTime 4 175.26 cm 26.9 kg/m2 84045.8 1 g 97.7 [degF] 84 /min 122 mm[Hg] 60 mm[Hg] CRISTIANO Meneses [facility] [employer] [facility] 4 10:35:17 Date Recorded Body height Heart rate Body temperature Oxygen saturation Oxygen saturation in Arterial blood by Pulse oximetry Body mass index (BMI) Body weight Systolic blood pressure Diastolic blood pressure Provider Name and Address Organization Details Last Updated DateTime 4 175.26 cm 80 /min 96.1 [degF] 99 % 99 % 26.9 kg/m2 55148.8 1 g 108 mm[Hg] 76 mm[Hg] Ivana Henry CMA [facility] [employer] [facility] 4 10:18:54 Date Recorded Body height Body mass index (BMI) Body weight Body temperature Heart rate Oxygen saturation Oxygen saturation in Arterial blood by Pulse oximetry Systolic blood pressure Diastolic blood pressure Provider Name and Address Organization Details Last Updated DateTime 5 175.26 cm 26.1 kg/m2 13385.8 5 g 98.7 [degF] 90 /min 98 % 98 % 124 mm[Hg] 70 mm[Hg] Abi Cm MA [facility] [employer] [facility] 5 14:40:19 Social History Question Answer Notes LastModified by Organizat ion Details LastModified Time Tobacco Smoking Status Never Smoker Not Available [facility] 10/06/2022 01:46:34 Do You Have An Advance Directive? No [id number] Information not available 10/06/2022 What Is Your Level Of Alcohol Consumption? Occasional [id number] Information not available 10/06/2022 What Is Your Level Of Caffeine Consumption? Occasional [id number] Information not available 10/06/2022 In The 14 Days Before Symptom Onset, Have You Had Close Contact With A Laboratory-confir med COVID-19 While That Case Was Ill? No MIGRATION.28347 [id number] Information not available 10/06/2022 In The 14 Days Before Symptom Onset, Have You Had Close Contact With A Person Who Is Under Investigation For COVID-19 While That Person Was Ill? No MIGRATION.24736 37090 Information not available 10/06/2022 What Type Of Diet Are You Following? REGULAR MIGRATION.23831 80749 Information not available 10/06/2022 Which Illicit Or Recreational Drugs Have You Used? Gummy Edibles MIGRATION.64059 00599 Information not available 10/06/2022 What Is The Highest Grade Or Level Of School You Have Completed Or The Highest Degree You Have Received? 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 No MIGRATION.02061 43150 Information not available 10/06/2022 What Is The Fluoride Status Of Your Home? Unknown MIGRATION.63458 50582 Information not available 10/06/2022 Are There Any Guns Present In Your Home? Yes MIGRATION.51738 05528 Information not available 10/06/2022 Do You Use Insect Repellent Routinely? No MIGRATION.19986 36722 Information not available 10/06/2022 Where Do You Live? SingleLevelHouse MIGRATION.10048 22229 Information not available 10/06/2022 Do You Have A Medical Power Of Store Leader? No MIGRATION.99254 83067 Information not available 10/06/2022 What Was The Date Of Your Most Recent Tobacco Screening? 09/16/2024 [email or web address] Information not available 09/16/2024 Do You Have Any Pets? No MIGRATION.38373 95963 Information not available 10/06/2022 What Is Your Relationship Status? MIGRATION.03067 73764 Information not available 10/06/2022 Do You Have Smoke And Carbon Monoxide Detectors In Your Home? Yes MIGRATION.95697 54186 Information not available 10/06/2022 Are You Passively Exposed To Smoke? No MIGRATION.51292 91345 Information not available 10/06/2022 Are There Any Smokers In Your House? No MIGRATION.42749 11102 Information not available 10/06/2022 Do You Feel Stressed (tense, Restless, Nervous, Or Anxious, Or Unable To Sleep At Night)? [id number] MIGRATION.92006 97051 Information not available 10/06/2022 Do You Use Any Illicit Or Recreational Drugs? Yes MIGRATION.92683 69602 Information not available 10/06/2022 Do You Use Sunscreen Routinely? Yes MIGRATION.10895 58312 Information not available 10/06/2022 Has Tobacco Cessation Counseling Been Provided? No N/a MIGRATION.37084 31875 Information not available 10/06/2022 Have You Recently Traveled Abroad? No MIGRATION.47205 39575 Information not available 10/06/2022 Have You Used IV Drugs? No MIGRATION.00140 99373 Information not available 10/06/2022 Do You Have Any Dietary Restrictions? No MIGRATION.15491 04883 Information not available 10/06/2022 Do You Or Have You Ever Used Any Other Forms Of Tobacco Or Nicotine? No MIGRATION.26248 64701 Information not available 10/06/2022 Sex: Male Functional Status Question Answer Note LastModified by [employer] Details LastModified Time What is your exercise level? None MIGRATION.[id number] Information not available 10/06/2022 Mental Status None recorded. Family History Relationship Description Onset Age of this Age Resolved Age Notes LastModified by Organization Details LastModified Time Father Malignant tumor of stomach [email or web address] Not available 05/2025 14:22:43 Maternal Grandmother Diabetes mellitus MIGRATION.266 [id number] Not available 10/06/2022 01:46:47 Mother Hypertensive disorder MIGRATION.489 [id number] Not available 10/06/2022 01:46:47 Medical History Condition Response NERVE DISEASE Y BLINDNESS N RHEUMATIC FEVER N KIDNEY STONES N BLADDER PROBLEMS N MRSA N OTHER # 1 N POLIO N LUNG DISEASE/DISORDER N HISTORY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
--- OUTSIDE RECORDS SUMMARY | 2024-09-20 15:37 | XMS_ITS ---
Author Organization [facility] Address [address] [facility] [address] [place] [address] Care Team Providers Care Management Advisor Name Role Phone Elroy Conner Primary Care Provider Renee Cooper [phone] Allergies Allergen (clinical drug ingredient) Drug/Non Drug Allergy documented on EMR Reaction Allergy Type Onset Date Status Penicillin Unknown Drug Allergy Active REASON FOR VISIT Infusion, Simponi, 166mg, 4 vials, YD Medications Medication SIG (Take, Route, Frequency, Duration) Notes Start Date End Date Status Leflunomide 20 MG 1 tablet Orally Once a day for 30 days 06/12/2024 09/10/2024 Active Tamsulosin HCl 0.4 MG 1 capsule Orally O nce a day for 30 day(s) Active Rosuvastatin Calcium 10 MG 1 tablet Oral ly Once a day for 30 day(s) Active Vital Signs Blood pressure systolic 150 mm Hg 09/02/19 25 Blood pressure diastolic 99 mm Hg 025 Heart Rate 85 /min 09/02/2024 Temperature 98.2 degrees Fahrenheit 09/02/19 25 Weight 177 lbs 09/02/2024 Weight-kg 80.29 kg 09/02/2024 Height 69 in 09/02/2024 Height-cm 175.26 cm 09/02/2024 BMI 26.14 kg/m2 09/02/2024 Encounters Encounter Location Date Provider Diagnosis [facility] [address] [facility] [address] [place] [address] 09/02/2024 Renee Smith Rheumatoid arthritis without rheumatoid factor, multiple sites M06.09 Assessments Encounter Date Diagnosis (ICD Code) Assessment Notes Treatment Notes Treatment Clinical Notes Section Notes 09/02/2024 Rheumatoid arthritis without rheumatoid factor, multiple sites (ICD-10 - M06.09) Plan Of Treatment Next Appt Details Follow Up: 2 Months, Reason: Provider Name:Renee Brian, 09/30 08:30:00 AM, [address], [place], [address], Provider Name:Renee Smith, 11/25 08:30:00 AM, [address], [facility] [address], [place], [address], Progress Notes * Jose Elias PINONDOB:1960 ( 64 yo M)Acc No.[id number]:09/02/2024 Simponi Infusion Patient: Jose Elias DUONG Provider: Rosalia SMITH MD :1960 A ge:64 Y S ex:Male Date:09/02/2024 Address:[address] [place] [address] , [place] [address] Pcp:Elroy Conner Subjective: * Chief Complaints: * I nfusion, Simponi, 166mg, 4 vials, YD * HPI: I nfusion: Infusion Record T ype of Infusion _ ____,Simponi Aria,?What is the dosage . 161mg dose. 39mg waste., H ow is the dose calculated . 2mg/kg, A uthorized by _ ____,Eduard Moody umber of vials to reconstitute . 4, I nfusion type _ ____,Simponi Aria, A mount . 161mg, M anufacturer _ ___ Jenny, E xpiration date 02/2027, L ot number _ __ [id number], S terile water (number of vials) . n/a, S terile water lot number N /A, s terile water MFG N /A. P re Infusion Assessment T B Screening Results PPD N /A, Q uantiferon TB Gold Results N egative on 08/13/2024, C hest Xray Results N /A, R ecent exposure to TB _ ____,N/A, A ny illness now _ ____,None. S kin Conditon D oes the patient has any skin condition n o. P revious Infusion D ate of last infusion First Simponi Infusion, P revious infusion type _ ____, R eaction N /A, W as patient pre treated _ ____,N/A, R esponse to previous infusion N /A. I V INSERTION C atheter brand _ ___ Kaz-C-Ziizgv, Catherter Gauge _ ____,24 ga, N eedle Length _ ___,3/4 inch, I V site accessed?____ LAC, N umber of attempts to access vein/port 1 , P remedication _ ____ n/a, T radha given _ __ n/a. P ATIENT MONITORING T radha infusion initated _ __ 0843, Rate of infusion _ __ 200cc/hour, I nfusion end time: _ ____ 0913. D ISPOSITION?Time IV discontinued: _ __ Vitals taken at 0933. BP of 129/83, HR of 71, Temperature of 98.7F. No s/s of distress noted. IV removed., A mount of drug administered _ ___ 161mg, N ext Infusion Date Scheduled: 0 09/30/2024. * Medical History: * Surgical History: h ernia repair, right forearm fracture * Hospitalization/Major Diagno stic Procedure: * Family History: stomach cancer, diabetes, hypertension. * Medications: T akingTamsulosin HCl 0.4 MG Capsule 1 capsule Orally Once a day Rosuvastatin Calcium 10 MG Tablet 1 tablet Orally Once a day Leflunomide 20 MG Tablet 1 tablet Orally Once a day , stop date 09/10/2024Taking Tamsulosin HCl 0.4 MG Capsule 1 capsule Orally Once a day Taking Rosuvastatin Calcium 10 MG Tablet 1 tablet Orally Once a day Taking Leflunomide 20 MG Tablet 1 tablet Orally Once a day , stop date 09/10/2024 * Allergies: P enicillin Objective: * Vitals: B P:150/99mm Hg, HR:85/min, Temp:98.2F, Wt:177lbs, Wt-k.29 kg, Ht: 69 in, Ht- cm: 175.26 cm, BMI:26.14Index, Body Surface Area: 1.98. Assessment: * Assessment: 1. R heumatoid arthritis without rheumatoid factor, multiple sites - M06.09 (Primary) ? Plan: * Treatment: * Procedure Codes: J 1602 INJECTION GOLIMUMAB 1 MG FOR IV USE, Units: 161.00 01492 THER/PROPH/DIAG IV INF, [id number] INJECTION GOLIMUMAB 1 MG FOR IV USE, Units: 39.00 , Modifiers: JW * Follow Up: 2 Months * Billing Information: * Visit Code: * Procedure Codes: J1602 INJECTION GOLIMUMAB 1 MG FOR IV USE. Units: 161.00. 93456 THER/PROPH/DIAG IV INF, INIT. J1602 INJECTION GOLIMUMAB 1 MG FOR IV USE. Units: 39.00. Modifiers: JW * RAL INTERNIST AND PHYSICIAN LEADER Electronically co-signed by Renee Smith MD on 09/02/2024 at 03:46 PM GENERAL INTERNIST AND PHYSICIAN LEADER Sign off status: Completed true * Provider: Rosalia SMITH MD Date: 0 09/02/2024 Generated for Arnoldo rodríguez/Ronna/eTransmitting on: 0 09/20/2024 03:37 PM GENERAL INTERNIST AND PHYSICIAN LEADER History and Physical Notes * HPI (History of Present Illness) Category Sub-Category Detail Notes Category Not es Infusion Infusion Record Type of Infusion: ,Simponi Aria What is the dosage: . 161mg dose. 39mg w aste. How is the dose calculated: . 2mg/kg Authorized by: Dr. Smith Number of vials to reconstitute: . 4 Infusion type: ,Simponi Aria Amount: . 161mg Rail Car Driver: ____ PeekYou Expiration date: 02/2027 Lot number: ___ [id number] Sterile water (number of vials): . n/a Sterile water lot number: N/A sterile water MFG: N/A Pre Infusion Assessment TB Screening Results PPD : N/A Quantiferon TB Gold Results: Negative on 08/13/2024 Chest Xray Results: N/A Recent exposure to TB: ,N/A Any illness now: ,None Skin Conditon Does the patient has any skin co ndition: no Previous Infusion Date of last infusion: First S imponi Infusion Previous infusion type: Reaction: N/A Was patient pre treated: ,N/A Response to previous infusion: N/A IV INSERTION Catheter brand: ____ Saf-T-Intim a Catherter Gauge: ,24 ga Needle Length: ____,3/4 inch IV site accessed: ____ LAC Number of attempts to access vein/port: 1 Premedication: n/a Time given: ___ n/a PATIENT MONITORING Time infusion initated: ___ 0 843 Rate of infusion: ___ 200cc/hour Infusion end time:: 09 DISPOSITION Time IV discontinued:: ___ Vital s taken at 0933. BP of 129/83, HR of 71, Temperature of 98.7F. No s/s of distress noted. IV removed. Amount of drug administered: ____ 161mg Next Infusion Date Scheduled:: 5
--- OUTSIDE RECORDS SUMMARY | 2024-09-20 15:37 | XMS_ITS | Clinical Summary ---
Author Organization [facility] Address [address] [place] [address] Care Team Providers Care [employer] Consultant Name Role Phone Unavailable Primary Care Provider Unavailabl e Source Comments [facility],non-owned Affiliates and Associated Physician Practices is amultiple site organization consisting of ambulatory clinics and hospital sitesin [place] and [place]. This disclosure is being madepursuant to the Care Everywhere program and may not contain all information available regarding this patient. Last updated 18.[facility] Social History Tobacco Use Types Packs/Day Years Used Date Smoking Tobacco: Never Assessed Sex and Gender Information Value Date Recorded Sex Assigned at Not on file Gender Identity Not on file Sexual Orientation Not on file Plan of Treatment Health Maintenance Due Date Last Done Comments COLOGUARD (AGES 45-75) - COL ON CA SCREENING 1960 COLON MONITORING 1959 COLONOSCOPY - COLON CA SCREENING 1959 CT COLONOGRAPHY - COLON CA SCREENING 1960 Colorectal Cancer Screening 1959 FIT - COLON CA SCREENING 1959 FLEX SIG - COLON CA SCREENING 1959 LIPID TESTING 1959 HIV SCREENING 1974 HEPATITIS C SCREENING 04/08/1977 DTAP/TDAP/TD VACCINES (1 - Tdap) 1978 PNEUMOCOCCAL VACCINE 50+ (1 of 1 - PCV) 2009 ZOSTER VACCINE (1 of 2) 2009 COVID-19 VACCINE (3 - 2023-2 5 season) 2024 11/26/2020, 11/01/2020 INFLUENZA VACCINE (#1) 2024 DEPRESSION SCREENING 08/07/2024 Respiratory Syncytial Virus (RSV) Vaccine Pt: or over 60 yrs (1 - 1-dose 75+ series) 2034 HEPATITIS B VACCINE Aged Out No longe r eligible based on patient's age to complete this topic HIB VACCINE Aged Out No longer eligi ble based on patient's age to complete this topic HPV VACCINE Aged Out No longer eligi ble based on patient's age to complete this topic MENINGOCOCCAL (Group B) VACCINE Aged Out No longer eligible b ased on patient's age to complete this topic MENINGOCOCCAL VACCINE Aged Out No nazia mateo eligible based on patient's age to complete this topic
--- OUTSIDE RECORDS SUMMARY | 2024-09-20 15:37 | XMS_ITS | Referral Summary ---
Author Organization [facility] Address [address] [place] [address] Care Team Providers Care Surfacer Name Role Phone Unavailable Primary Care Provider Unavailabl e Source Comments [facility],non-owned Affiliates and Associated Physician Practices is amultiple site organization consisting of ambulatory clinics and hospital sitesin [place], [place], [place] and [place]. This disclosure is being madepursuant to the Care Everywhere program and may not contain all information available regarding this patient. Last updated 18.[facility] Social History Tobacco Use Types Packs/Day Years Used Date Smoking Tobacco: Never Assessed Sex and Gender Information Value Date Recorded Sex Assigned at Not on file Gender Identity Not on file Sexual Orientation Not on file [place] [address]
--- OUTSIDE RECORDS SUMMARY | 2024-09-20 15:37 | XMS_ITS | Continuity of Care Document ---
Author Organization [facility] Address [address] [place] [address] Phone Care Team Providers Care Boning Room Worker Name Role Phone THUY MONZON MD Unavailable Unavailable Allergies, Adverse Reactions, Alerts Substance Reaction Status Criticality Penicillins Rash(severe) Active No Information Medications Medication Instructions Dosage Effective Dates (start - stop) Status Comments Mucinex 600 mg tablet,extended release take 1 tablet by oral route every 12 hours as needed 600 MG - Active Zyrtec 10 mg tablet take 1 tablet by ora l route every day 10 MG - Active temazepam 15 mg capsule take 1 capsule (15MG) by oral route every day at bedtime as needed 15 MG - Active Prostate Health Formula 15 mg-2 mg-160 mg capsule take 2 by Oral route - Active Procedures Procedure Date OFFICE/OUTPATIENT VISIT, EST OFFICE/OUTPATIENT VISIT, EST OFFICE/OUTPATIENT VISIT, EST PREV VISIT, NEW, AGE 40-64 Advance Directives Directive Yes / No Effective Date File Name No Information Encounters Encounter Description Practice Location Reason(s) For Visit Diagnoses Date Provider Providers [facility] [address], [place], [place], [id number] , tel:[phone] Tamara No Information 2 [address] [place], [place], [id number] . tel:[phone] OFFICE/OUTPA TIENT VISIT, [facility] e, [address], [place], [place], [id number] , [place] tel: [phone] Tamara cough (chief complaint) Acute bronchitisViral illness 4 NIC[address]S [address] [place] [address], [id number] . tel: [phone] OFFICE/OUTPA TIENT VISIT, [facility], [address], [place], [place], [id number] , [place] tel: [phone] Tamara musculoskeletal pain (chief complaint)muscul oskeletal pain (chief complaint) Shoulder weaknessPlantar fasciitis 3 HERMAN BAUMAN. [address] [place] [address], [id number] , [place]. tel: [phone] Referring Provider: MERNA SUTTON, [address] [place] [address], [address] . tel:[phone] OFFICE/OUTPA TIENT VISIT, [facility], [address], [place], [place], [id number] , [place] tel: [phone] Tamara musculoskeletal pain (chief complaint)SPOTS ON HEAD (chief complaint)INSOMN IA (chief complaint) InsomniaLeg swellingSkin lesion 3 HERMAN BAUMAN[address] [place] [address], [id number] , [place]. tel: [phone] Referring Provider: MERNA SUTTON, [address] [place] [address], [address] . tel:[phone] PREV VISIT, NEW, AGE 40-64 [facility], [address], [place], [place], [id number] , [place] tel: [phone] Tamara preventive exam (chief complaint) Screening, lipidScreening for prostate cancerScreening for diabetes mellitusSkin abnormalityPlan tar fasciitis 3 CRUZ SANCHEZ. [address] [place] [address], [id number] , [place]. tel: [phone] Referring Provider: LAURA ARROYO, [address] [place], [address] . tel:[phone] Family History Family Member Type Diagnosis Age At Onset Maternal grandfather Problem (finding) Cancer - prosta te skin Payers Payer name Insurance type Covered republican ID Kimberly Olmos (s) ([facility]) CI [id number] Social History Type Description Quantity Date Captured Comments Sex Male Smoking Status No Information Chief Complaint And Reason For Visit No Information Reason For Referral Reason For Referral No Information Plan Of Treatment Date Type Action Status Referral Ordered: X-RAY OF CHEST PA AND LATERAL ordered Referral Ordered: Referral: Orthopedics. Evaluate and treat. ordered Referral Ordered: Referral: Diagnostic Radiology. Diagnostic testing. ordered Referral Ordered: Referral: Podiatry. Evaluate and treat. ordered Referral Ordered: Referral: Sleep Studies. Evaluate and treat. ordered Referral Ordered: US EXAM, EXTREMITY Right leg ordered Future Order: Lab Order Lipid Pa cleo ([id number]), Sent on: Sent Future Order: Lab Order CMP ([id number]), S ent on: Sent Future Order: Lab Order PSA Tota l (Reflex To Free) ([id number]), Sent on: Sent History Of Present Illness Encounter Date Complaint History Of Prese nt Illness No Information Functional Status Date Functional Assessmen t No Information Instructions Date Instruction Additional Infor mation No Information Assessments Type Assessment Date No Information Patient Care Teams Name Effective Dates (start - stop) Status Members No Information
== END 2024-09-20 15:32 | disposition home or self-care (01) ==
PROVIDERS: PCP Internal Medicine; Visit Provider Internal Medicine
DX: R74.01 Elevation of levels of liver transaminase levels (principal); K57.30 Diverticulosis of large intestine without perforation or abscess without bleeding
CPT/HCPCS: 74176

== ENCOUNTER 2024-11-20 10:06 | Outpatient (CLI) | payer MEDICARE, SELFPAY ==
--- NOTE | ~2024-11-20 | US_ITS ---
Limited Abdominal Sonogram: Real-time sonographic imaging of the right upper quadrant was performed. Clinical History: Abnormal liver enzyme levels Findings: The liver appears normal with no evidence of mass lesion or bile duct dilatation. Main por santosh vein demonstrates normal direction of flow. The gallbladder is well distended, and appears normal with no evidence of gallstone or wall thickening. The common bile duct measures 3 mm. The visualize d pancreas, aorta, and IVC are unremarkable. Impression: No significant abnormality seen. Reviewed, dictated and finalized at location M. Impression: No significant abnormality seen.
== END 2024-11-20 10:07 | disposition home or self-care (01) ==
LOC: MICIMG 10:07
PROVIDERS: PCP Internal Medicine; Visit Provider Internal Medicine
DX: R74.01 Elevation of levels of liver transaminase levels (principal)
CPT/HCPCS: 76705